=== PATIENT | female | born 1980 | race African-American/Black ===

== ENCOUNTER 2018-05-02 19:19 | Emergency (ER) | payer OTHER ==
--- NOTE | 2018-05-02 20:04 | ED ---
General Adult HPI - General Chief complaint: Abdominal Pain Stated complaint: side pain Time Seen by Provider: 05/02/18 20:04 Source: patient Mode of arrival: ambulatory Limitations: no limitations - History of Present Illness Initial comments: 37 year old female without past medical history presents to the emergency department for a chief complaint of left flank and side pain times one week. Patient states the pain has been worsening. She describes the pain as a sharp pain in her left side and flank. She states the pain is now also radiating into her left lower quadrant as well which started today. Patient states she did pull a muscle on the left side of her body about 2 weeks ago which was generally higher up on her back and had resolved. She was seen at [facility] for this. She states this pain started shortly afterwards. She does admit to urinary frequency as well. She denies any pain with urination or noticing any blood in her urine. Patient denies any history of nephrolithiasis. She denies any fevers or chills at home. She denies any recent injuries. She states that she is unable to get comfortable due to the pain which she describes as a sharp pain. Patient has no other complaints at this time including shortness of breath, chest pain, nausea or vomiting, headache, or visual changes. - Related Data Home Medications Medication Instructions Recorded Confirmed Ibuprofen [Motrin] 600 mg PO DAILY PRN 05/02/18 05/02/18 Ibuprofen [Motrin] 600 mg PO Q8HR PRN 05/02/18 05/02/18 predniSONE 40 mg PO DAILY 05/02/18 05/02/18 predniSONE 40 mg PO DAILY 05/02/18 05/02/18 Allergies Allergy/AdvReac Type Severity Reaction Status Date / Time No Known Allergies Allergy Verified 05/02/18 20:31 Review of Systems ROS Statement: Those systems with pertinent positive or pertinent negative responses have been documented in the HPI. ROS Other: All systems not noted in ROS Statement are negative. Past Medical History Past Medical History: No Reported History History of Any Multi-Drug Resistant Organisms: None Reported Past Surgical History: Section Past Psychological History: No Psychological Hx Reported Smoking Status: Never smoker Past Alcohol Use History: Occasional Past Drug Use History: None Reported General Exam Limitations: no limitations General appearance: alert, in no apparent distress Head exam: Present: atraumatic, normocephalic, normal inspection Eye exam: Present: normal appearance, PERRL, EOMI. Absent: scleral icterus, conjunctival injection, periorbital swelling ENT exam: Present: normal exam, normal oropharynx, mucous membranes moist Neck exam: Present: normal inspection, full ROM. Absent: tenderness, meningismus, lymphadenopathy Respiratory exam: Present: normal lung sounds bilaterally. Absent: respiratory distress, wheezes, rales, rhonchi, stridor Cardiovascular Exam: Present: regular rate, normal rhythm, normal heart sounds. Absent: systolic murmur, diastolic murmur, rubs, gallop, clicks GI/Abdominal exam: Present: soft, normal bowel sounds. Absent: distended, tenderness (No tenderness in the abdomen), guarding, rebound, rigid Back exam: Absent: tenderness (No tenderness to the left flank or side), CVA tenderness (R), CVA tenderness (L) Neurological exam: Present: alert, oriented X3, CN II-XII intact Psychiatric exam: Present: normal affect, normal mood Course Vital Signs 05/02/18 19:26 Temperature 98.4 F Pulse Rate 85 Respiratory 18 Rate Blood Pressure 103/69 O2 Sat by Pulse 100 Oximetry Medical Decision Making - Medical Decision Making 87-year-old female presents to the emergency department for a chief complaint of left flank and side pain times one week. He states this is now radiating to her left lower quadrant it started earlier today. She does admit to urinary frequency but denies pain with urination. She denies any history of kidney stones. On exam patient does not have any abdominal tenderness. She denies any CVA tenderness. Vitals are within normal limits. CBC and CMP were ordered. Patient does have a hemoglobin of 9.9 and is anemic but denies any symptoms of this. Urine does not show any evidence of infection. CT abdomen and pelvis shows small bladder calculus or distal ureteral calculus on the left side. It is likely the cause of patient's pain. On reevaluation patient does admit that pain has significantly improved since arrival. At this point as patient has passed the stone she will follow up with primary care for anemia as well as kidney stone. She will return if she has any worsening symptoms or symptoms of anemia which were discussed with her. Discussed case with Dr. Bonner - Lab Data Result diagrams: 05/02/18 20:10 05/02/18 20:10 Lab Results 05/02/18 05/02/18 05/02/18 Range/Units 20:10 20:10 20:21 WBC 8.6 (3.8-10.6) k/uL RBC 4.23 (3.80-5.40) m/uL Hgb 9.9 L (11.4-16.0) gm/dL Hct 32.4 L (34.0-46.0) % MCV 76.5 L (80.0-100.0) fL MCH 23.5 L (25.0-35.0) pg MCHC 30.7 L (31.0-37.0) g/dL RDW 17.3 H (11.5-15.5) % Plt Count 342 (150-450) k/uL Neutrophils % 44 % Lymphocytes % 44 % Monocytes % 5 % Eosinophils % 3 % Basophils % 1 % Neutrophils # 3.8 (1.3-7.7) k/uL Lymphocytes # 3.7 (1.0-4.8) k/uL Monocytes # 0.4 (0-1.0) k/uL Eosinophils # 0.2 (0-0.7) k/uL Basophils # 0.1 (0-0.2) k/uL Hypochromasia Moderate Anisocytosis Slight Microcytosis Slight Sodium 138 (137-145) mmol/L Potassium 4.0 (3.5-5.1) mmol/L Chloride 106 (98-107) mmol/L Carbon Dioxide 24 (22-30) mmol/L Anion Gap 8 mmol/L BUN 13 (7-17) mg/dL Creatinine 0.61 (0.52-1.04) mg/dL Est GFR (CKD-EPI)AfAm >90 (>60 ml/min/1.73 sqM) Est GFR (CKD-EPI)NonAf >90 (>60 ml/min/1.73 sqM) Glucose 101 H (74-99) mg/dL Calcium 8.9 (8.4-10.2) mg/dL Total Bilirubin 0.4 (0.2-1.3) mg/dL AST 21 (14-36) U/L ALT 23 (9-52) U/L Alkaline Phosphatase 53 (38-126) U/L Total Protein 7.4 (6.3-8.2) g/dL Albumin 3.8 (3.5-5.0) g/dL Amylase 62 (30-110) U/L Lipase 55 (23-300) U/L Urine Color Light Yellow Urine Appearance Cloudy H (Clear) Urine pH 7.5 (5.0-8.0) Ur Specific [place] 1.017 (1.001-1.035) Urine Protein Negative (Negative) Urine Glucose (UA) Negative (Negative) Urine Ketones Negative (Negative) Urine Blood Negative (Negative) Urine Nitrite Negative (Negative) Urine Bilirubin Negative (Negative) Urine Urobilinogen <2.0 (<2.0) mg/dL Ur Leukocyte Esterase Negative (Negative) Urine WBC 1 (0-5) /hpf Ur Squamous Epith Cells 5 H (0-4) /hpf Urine Mucus Rare H (None) /hpf Urine HCG, Qual (Not Detectd) 05/02/18 Range/Units 20:21 WBC (3.8-10.6) k/uL RBC (3.80-5.40) m/uL Hgb (11.4-16.0) gm/dL Hct (34.0-46.0) % MCV (80.0-100.0) fL MCH (25.0-35.0) pg MCHC (31.0-37.0) g/dL RDW (11.5-15.5) % Plt Count (150-450) k/uL Neutrophils % % Lymphocytes % % Monocytes % % Eosinophils % % Basophils % % Neutrophils # (1.3-7.7) k/uL Lymphocytes # (1.0-4.8) k/uL Monocytes # (0-1.0) k/uL Eosinophils # (0-0.7) k/uL Basophils # (0-0.2) k/uL Hypochromasia Anisocytosis Microcytosis Sodium (137-145) mmol/L Potassium (3.5-5.1) mmol/L Chloride (98-107) mmol/L Carbon Dioxide (22-30) mmol/L Anion Gap mmol/L BUN (7-17) mg/dL Creatinine (0.52-1.04) mg/dL Est GFR (CKD-EPI)AfAm (>60 ml/min/1.73 sqM) Est GFR (CKD-EPI)NonAf (>60 ml/min/1.73 sqM) Glucose (74-99) mg/dL Calcium (8.4-10.2) mg/dL Total Bilirubin (0.2-1.3) mg/dL AST (14-36) U/L ALT (9-52) U/L Alkaline Phosphatase (38-126) U/L Total Protein (6.3-8.2) g/dL Albumin (3.5-5.0) g/dL Amylase (30-110) U/L Lipase (23-300) U/L Urine Color Urine Appearance (Clear) Urine pH (5.0-8.0) Ur Specific [place] (1.001-1.035) Urine Protein (Negative) Urine Glucose (UA) (Negative) Urine Ketones (Negative) Urine Blood (Negative) Urine Nitrite (Negative) Urine Bilirubin (Negative) Urine Urobilinogen (<2.0) mg/dL Ur Leukocyte Esterase (Negative) Urine WBC (0-5) /hpf Ur Squamous Epith Cells (0-4) /hpf Urine Mucus (None) /hpf Urine HCG, Qual Not Detected (Not Detectd) Disposition Clinical Impression: Kidney stone on left side, Anemia Disposition: HOME SELF-CARE Condition: Good Instructions: Kidney Stones (ED), Anemia (ED) Additional Instructions: Please follow up with primary care in 1-2 days for anemia and kidney stone. Please return immediately to the emergency department if you have any worsening symptoms. Is patient prescribed a controlled substance at d/c from ED?: No Referrals: Nonstaff,Physician [Primary Care Provider] - 1-2 days Time of Disposition: 23:23
[2018-05-02] MEDS ORDERED: KETOROLAC 30 MG/ML 1 ML VIAL IVP STA (20:19)
[2018-05-02] MEDS ORDERED: SODIUM CHLORIDE 0.9% 1,000 ML IV STA (20:19)
[2018-05-02 20:39] LABS: Anisocytosis Slight; Basophils # (A) 0.1 k/uL (0-0.2); Basophils % (A) 1 %; Eosinophils # (A) 0.2 k/uL (0-0.7); Eosinophils % (A) 3 %; HCT 32.4 % (34.0-46.0); HGB 9.9 gm/dL (11.4-16.0); Hypochromasia Moderate; Lymphocytes # (A) 3.7 k/uL (1.0-4.8); Lymphocytes % (A) 44 %; MCH 23.5 pg (25.0-35.0); MCHC 30.7 g/dL (31.0-37.0); MCV 76.5 fL (80.0-100.0); Mean Platelet Volume 6.7; Microcytosis Slight; Monocytes # (A) 0.4 k/uL (0-1.0); Monocytes % (A) 5 %; Neutrophils # (A) 3.8 k/uL (1.3-7.7); Neutrophils % (A) 44 %; Platelet Count 342 k/uL (150-450); RBC 4.23 m/uL (3.80-5.40); RDW 17.3 % (11.5-15.5); WBC 8.6 k/uL (3.8-10.6)
[2018-05-02 20:49] LABS: ALT 23 U/L (9-52); AST 21 U/L (14-36); Albumin 3.8 g/dL (3.5-5.0); Alkaline Phosphatase 53 U/L (38-126); Amylase 62 U/L (30-110); Anion Gap 8 mmol/L; Blood Urea Nitrogen 13 mg/dL (7-17); Calcium 8.9 mg/dL (8.4-10.2); Carbon Dioxide 24 mmol/L (22-30); Chloride 106 mmol/L (98-107); Glucose 101 mg/dL (74-99); Lipase 55 U/L (23-300); Sodium 138 mmol/L (137-145); Total Bilirubin 0.4 mg/dL (0.2-1.3); Total Protein 7.4 g/dL (6.3-8.2)
[2018-05-02 22:15] LABS: Appearance,Urine Cloudy (Clear); Bilirubin,Urine Negative (Negative); Blood,Urine Negative (Negative); Color,Urine Light Yellow; Glucose,Urine (UA) Negative (Negative); Ketones,Urine Negative (Negative); Leukocyte Esterase,Urine Negative (Negative); Mucus,Urine Rare /hpf; Nitrite,Urine Negative (Negative); PH, Urine 7.5 (5.0-8.0); Protein,Urine Negative (Negative); Specific Gravity,Urine 1.017 (1.001-1.035); Squamous Epithelial Cell,Urine 5 /hpf (0-4); Urobilinogen,Urine <2.0 mg/dL (<2.0); WBC,Urine 1 /hpf (0-5)
--- NOTE | 2018-05-02 22:49 | CT ---
EXAMINATION TYPE: CT abdomen pelvis wo con DATE OF EXAM: 05/02/2018 COMPARISON: None HISTORY: No prior, left sided flank pain, renal stone protocol, neg hcg CT DLP: 614.70 mGycm Automated exposure control for dose reduction was used. TECHNIQUE: Helical acquisition of images was performed from the lung bases through the pelvis. FINDINGS: Lung bases are clear. There is no pleural effusion. Heart size is normal. Liver spleen pancreas appear normal. Bile ducts are not dilated. Gallbladder appears normal. Bile talya ts are not dilated. There is no adrenal mass. Kidneys have normal size and contour. There is no hydronephrosis. There is no evidence of renal calculus. Ureters are not dilated. The left ureter is not dilated but there is a 2 mm calcification in the region of posterior urinary bladder on the left side that could be distal ureteral calculus or bladder calculus. This is seen on image 121. There are phleboliths in the pelvis . Uterus is anteverted. There is probably anterior uterine fundal fibroid. The stomach appears normal. I see no intestinal wall thickening. There are no dilated loops. There is small umbilical hernia that contains fat. Appendix appears normal. Appendix is posterior and medial. Lumbar vertebra have normal spacing and alignment. Posterior elements are intact bony pelvis is intac t. There is no inguinal hernia. There are a few bilateral small inguinal lymph nodes. IMPRESSION: NO RENAL CALCULUS SEEN. THERE IS POSSIBLE SMALL BLADDER CALCULUS OR DISTAL URETERAL CALCULUS ON THE L EFT SIDE.
[2018-05-02 23:34] VITALS: BP 115/71; PULSE 79; RESP 17; TEMP 97.5
[2018-05-04 14:18] LABS: N. gonorrhoeae,PCR Negative (Neg,Equiv); Neisseria Source Urine
== END 2018-05-02 23:56 | disposition home or self-care (01) ==
LOC: EC 19:19
DX: N20.0 Calculus of kidney (principal); D64.9 Anemia, unspecified; Z79.52 Long term (current) use of systemic steroids
CPT/HCPCS: 36415; 80053; 82150; 83690; 85025; 81001; 81025; 87491; 87591; 74176; 99284; 96374; 96361; J1885